=== PATIENT | male | born 1945 | race Caucasian/White ===

== ENCOUNTER 2016-12-26 10:09 | Emergency (ER) | payer MEDICARE, BC ==
[~2016-12-26] VITALS: Ht 180.3 cm; Wt 102.7 kg
[2016-12-26 10:23] VITALS: BP 136/77
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
== END 2016-12-26 11:46 | disposition home or self-care (01) ==
LOC: ER 10:09
DX: S60.221A Contusion of right hand, initial encounter (principal); S40.011A Contusion of right shoulder, initial encounter; I10 Essential (primary) hypertension; I25.2 Old myocardial infarction; Z91.041 Radiographic dye allergy status; Y08.89XA Assault by other specified means, initial encounter; Y93.89 Activity, other specified; Y99.8 Other external cause status; Y92.89 Other specified places as the place of occurrence of the external cause
CPT/HCPCS: 71101; 73030; 73110; 73130; 99284